=== PATIENT | female | born 1970 | race Caucasian/White ===

== ENCOUNTER 2025-03-01 13:20 | Emergency (ER) | payer OTHER, SELFPAY ==
--- NOTE | 2025-03-01 | ECG_ITS ---
Test Reason : DIZZINESS Blood Pressure : */* mmHG Vent. Rate : 77 BPM Atrial Rate : 77 BPM P-R Int : 146 ms QRS Dur : 80 ms QT Int : 354 ms P-R-T Axes : 45 32 39 degrees QTcB Int : 400 ms Normal sinus rhythm Low voltage QRS Borderline ECG No previous ECGs available Referred By: Nehemiah Lopez Electronically Signed By: BHAVNA BOOGIE
--- NOTE | ~2025-03-01 | CT_ITS ---
EXAMINATION: CT ANGIOGRAM BRAIN, HEAD CLINICAL INFORMATION: Headache and syncope, consider SAH COMPARISON: None available. TECHNIQUE: Test bolus sequences followed by intravenous administration 100 mL of Omnipaque 350 intravenous contrast. Helical imaging was performed in the axial plane from the skull base to the vertex. Delayed postcontrast imaging of the head was also performed. The data was processed at the glass technologist workstation for generation of MIP sequences. Three-dimensional volume rendered reformatted images were also generated at an offline 3-D workstation. The degree of stenosis determined by NASCET criteria. This CT examination was performed using dose optimization techniques as appropriate, variously including the following: *Automated exposure control *Adjustment of mA and/or kV according to patient size (this includes techniques or standardized protocols for targeted exams where dose is matched to indication/reason for exam; i.e. extremities or head) *Use of iterative reconstruction technique FINDINGS: CTA OF THE BRAIN: -INTRACRANIAL INTERNAL CAROTID ARTERIES: No focal stenosis or occlusion. -RIGHT ANTERIOR CEREBRAL ARTERY: Normal A1 segment.. Normal arborization of the distal segments. -LEFT ANTERIOR CEREBRAL ARTERY: Normal A1 segment.. Normal arborization of the distal segments. -ANTERIOR COMMUNICATING ARTERY: Normal. -RIGHT MIDDLE CEREBRAL ARTERY: Normal M1 segment of the MCA without focal stenosis or occlusion. Normal bifurcation. Normal arborization of the distal segments. -LEFT MIDDLE CEREBRAL ARTERY: Normal M1 segment of the MCA without focal stenosis or occlusion. Normal bifurcation. Normal arborization of the distal segments. -RIGHT VERTEBRAL ARTERY V4: Normal in course and caliber. -LEFT VERTEBRAL ARTERY V4: Dominant. Normal in course and caliber. -BASILAR ARTERY: Normal without focal stenosis or occlusion. Normal appearance of the proximal superior cerebellar arteries. Normal basilar tip. -RIGHT POSTERIOR CEREBRAL ARTERY: Normal P1 segment. Normal opacification of the distal ALLIED HEALTH PROFESSIONAL segments. -LEFT POSTERIOR CEREBRAL ARTERY: Normal P1 segment. Normal opacification of the distal ALLIED HEALTH PROFESSIONAL segments. -POSTERIOR COMMUNICATING ARTERIES: The left is diminutive. The right is well seen. There is no regional oligemia on the MIPPED images. Normal opacification of the superior sagittal, straight, transverse, and sigmoid sinuses. No venous thrombosis. No space-occupying hemorrhage or definite evolving infarct. CT/CT angio head IMPRESSION: CTA HEAD: 1. Normal exam. No major arterial vascular occlusion, significant stenosis, dissection, or aneurysm. 2. Major cortical and dural venous sinuses are patent. 3. No evolving ischemic infarction or space-occupying hemorrhage. Electronically signed by: Karthik Clay MD 03/01/2025 03:36 PM EDT RP
--- NOTE | ~2025-03-01 | CT_ITS ---
EXAMINATION: CT CERVICAL SPINE WITHOUT IV CONTRAST HISTORY: syncope. TECHNIQUE: Helical CT of the cervical spine was performed per standard departmental protocol. Coronal and sagittal reformatted images were also evaluated. One or more of the following techniques was used for dose reduction: Automated exposure control, adjustment of the mA and/or kV according to patient size, use of iterative reconstruction technique. DLP: 298 mGy-cm COMPARISON: There are no prior studies for comparison. FINDINGS: CERVICAL SPINE: Osseous mineralization is normal. There is straightening of the normal cervical lordosis. The vertebral bodies maintain normal height, without evidence of fracture or subluxation. There is mild degenerative disc disease at the C6-7 level, with disc space narrowing and osteophyte formation. Evaluation for disc pathology is limited by lack of intrathecal contrast material, however. BRAIN: The visualized portion of the brain is unremarkable. SINUSES: The visualized paranasal sinuses, mastoid air cells and middle ear cavities are unremarkable. LUNG APICES: The visualized lung apices are clear. SOFT TISSUES: There is a 1.6 cm right thyroid nodule. CT/CT cervical spine wo IV con IMPRESSION: 1. Straightening of the normal cervical lordosis. No evidence of fracture or subluxation of the cervical spine. 2. 1.6 cm right thyroid nodule. Nonemergent thyroid ultrasound is recommended. Electronically signed by: Issa Ramos MD 03/01/2025 03:34 PM EDT
--- NOTE | ~2025-03-01 | CT_ITS ---
EXAMINATION: CT HEAD WITHOUT CONTRAST CLINICAL INFORMATION: Syncope. COMPARISON: None available. TECHNIQUE: Contiguous axial imaging was performed from the skull base to vertex without intravenous administration of contrast. This CT examination was performed using dose optimization techniques as appropriate, variously including the following: *Automated exposure control *Adjustment of mA and/or kV according to patient size (this includes techniques or standardized protocols for targeted exams where dose is matched to indication/reason for exam; i.e. extremities or head) *Use of iterative reconstruction technique FINDINGS: There is no evidence of intracranial hemorrhage or extra-axial fluid collection. There is no mass effect, or edema. No CT evidence of acute territorial infarct. Ventricles, sulci, and cisterns are normal in size and configuration for patient age. No hydrocephalus. No midline shift. Negative hyperdense MCA sign. Negative insular ribbon sign. No significant white matter abnormalities. Normal pituitary. Globes and orbital contents image normally. No extracranial soft tissue abnormalities. The paranasal sinuses, mastoid air cells, and tympanic cavities are normally aerated. No suspicious bony abnormalities. There are no acute fractures evident. CT/CT head/brain wo IV con IMPRESSION: No acute intracranial abnormality. Electronically signed by: Karthik Clay MD 03/01/2025 03:30 PM EDT RP
[2025-03-01 13:36] VITALS: BP 120/87; PULSE 77; RESP 18; TEMP 36.6; O2SAT 100; BMI 34.5
--- NOTE | 2025-03-01 13:42 | ED_ITS ---
HPI - General Adult General Chief complaint: Dizziness Stated complaint: Passed out earlier Time Seen by Provider: 03/01/25 13:45 History of Present Illness ED Provider: Nehemiah Lopez MD HPI narrative: Presents for evaluation after a syncopal event at work. Patient is a 54-year-old female who is on an antihypertensive who self reports but has not formally diagnosed with ?optical or ocular migraine?. She gets reasonably frequent visual flashes associated with headache. She does not have a formal migraine diagnosis nor has she had any neuroimaging or follows a neurologist. She does see an eye doctor she reports no major ophthalmologic abnormality. She tells me that last night she started with these binocular flashers in all visual nava mild but associated with mild headache this with self-limited last few hours and resolved on its own she was able to go to sleep. She woke and went to work. This morning before work she took Tylenol but no other medications. Work she felt about abrupt onset of nausea vomiting did not have headache she felt unwell and presyncopal and passed out she was on the ground for on. Unknown period of time. No obvious tongue biting but she felt a bruise to the inside of the buccal mucosa. No incontinence. She vomited after arrives here initially in triage had mild headache nurse reported that she appeared somewhat unsteady on her feet but now she feels completely comfortable Related Data Allergies Allergy/AdvReac Type Severity Reaction Status Date / Time No Known Allergies Allergy Verified 03/01/25 13:40 [No Known Allergies*] PMFSH Social History Social History Smoked in Last 30 Days: No Use of substances other than those prescribed or required for medical reasons: No Advance Directives: Yes Advance Directives Information Provided: Yes Advance Directives on File: No Do you have a plan to hurt others: No Plan Patient : No Physical Exam ED Vital Signs: Vital Signs - 24 hr 03/01/25 13:36 03/01/25 13:56 03/01/25 14:16 Temperature 97.8 F 98.3 F Pulse Rate 77 85 76 Respiratory Rate 18 18 14 Blood Pressure 120/87 182/99 H 144/70 H Pulse Oximetry 100 100 100 Oxygen Delivery Method Room Air Room Air Room Air 03/01/25 16:08 Temperature 98.3 F Pulse Rate 76 Respiratory Rate 14 Blood Pressure 144/70 H Pulse Oximetry 100 Oxygen Delivery Method Room Air BMI result Body Mass Index 34.5 Const Other: EXAM: Gen: Alert, awake, well appearing, well hydrated. Head: Atraumatic Eyes: Anicteric, Normal conjunctiva. ENT: Moist mucosa, no pallor. ? Neck: Supple. Respiratory: Breathing comfortably, No distress.Clear to auscultation bilaterally, symmetric chest expansion, No wheeze, rales, ronchi. Cardiovascular: Regular rate and rhythm. No murmurs or rub. Well perfused periphery, warm extremities. No edema. ? Abdominal: Soft, no objective distension. No palpable masses or obvious organomegaly. No focal tenderness, no guarding, no rebound tenderness or other peritoneal findings. : No flank tenderness. Neuro: Alert. Gross movement of all extremities intact. ?5/5 strength all extremities proximal and distal. Face symmetric. Was 3-4 mm symmetric reactive no nystagmus. EOMI. Normal sensation throughout to light touch. Normal cerebellar testing. Vital signs: See flowsheet Course Course Course Narrative: RmE: 54-year-old female presents to ED for syncopal episode while at work. Patient denies any chest pain, shortness of breath or abdominal pain before passing out. Patient states yesterday she had headache migraine, but none today. Patient's main complaint right now is nausea slight dizziness. NIH score is 0. Labs EKG head CT scan ordered. Patient to being brought back to the ED. Medications Administered Discontinued Medications Generic Name Dose Route Start Last Admin Trade Name Freq PRN Reason Stop Dose Admin Sodium Chloride 1,000 mls @ 999 mls/hr 03/01/25 14:15 03/01/25 16:08 Ns IV 03/01/25 15:15 Infused .Q1H1M ALYSON Infusion Iohexol 75 ml 03/01/25 15:17 03/01/25 15:17 Iohexol 350 Mg/Ml 100 Ml Infus..Btl IV 03/01/25 15:18 75 ml ONCE ONE Administration Medical Decision Making Medical Decision Making MDM Narrative: 54-year-old female with a syncopal event as described above prior to arrival. At this time she has returned to baseline with normal steady gait no headache visual symptom there was some prodrome as described above. Initial differential was broad included cerebral aneurysm with rupture, subarachnoid hemorrhage, ocular migraine, vasovagal syncope, orthostasis, dehydration, dysrhythmia The patient's examination was reassuring. ECG lab work all reassuring here. CT as well as CTA of the head no acute intracranial mass, bleed or other acute pathology nor any vascular lesions Likely benign syncope at this time can not rule out dysrhythmia. Cardiology or PCP follow up for event monitor Lab Data MDM Lab Attestation statement: I reviewed the patient's lab results. 03/01/25 13:50 03/01/25 13:50 Labs: Lab Results 03/01/25 03/01/25 Range/Units 13:50 15:50 WBC 18.6 H (4.8-10.8) X10*3/uL RBC 4.88 (4.20-5.50) X10*6/uL Hgb 15.1 (12.0-16.0) g/dl Hct 45.1 (37.0-47.0) % MCV 92.4 (80.0-98.0) fL MCH 30.9 (27.0-33.0) pg MCHC 33.5 (31.0-35.0) g/dl RDW 12.6 (11.0-16.0) % Plt Count 338 (160-400) X10*3/uL MPV 10.6 (9.4-12.3) fL Immature Gran % (Auto) 0.5 H (0.0-0.4) % Neut % (Auto) 89.5 H (45-73) % Lymph % (Auto) 7.2 L (20-40) % Marin % (Auto) 2.5 (2-11) % Eos % (Auto) 0.0 (0-4) % Baso % (Auto) 0.3 (0-2) % Lymph # (Auto) 1.3 (1.2-4.9) X10*3/uL Marin # (Auto) 0.5 (0.1-1.2) X10*3/uL Eos # (Auto) 0.0 (0.0-0.4) X10*3/uL Baso # (Auto) 0.1 (0.0-0.2) X10*3/uL Abs Immat Gran (auto) 0.09 H (0.00-0.03) X10*3/uL Absolute Neuts (auto) 16.6 H (2.0-8.3) x10*3/uL Absolute Nucleated RBC 0.000 (0.0-0.012) X10*3/uL Nucleated RBC % (auto) 0.0 (0.0-0.2) /100WBC PT 11.6 (10.9-12.4) SEC INR 1.0 (0.9-1.1) APTT 27.2 (26.0-36.8) SEC Sodium 139 (135-145) mmol/L Potassium 4.4 (3.3-5.1) mmol/L Chloride 105 (96-108) mmol/L Carbon Dioxide 25 (22-29) mmol/L Anion Gap 13 (12-20) BUN 12 (9-16) mg/dL Creatinine 0.77 (0.5-1.4) mg/dL Estim Creat Clear Calc 88.1 Estimated GFR > 60 Random Glucose 122 H (60-115) mg/dL Calcium 9.3 (8.4-10.2) mg/dL Total Bilirubin 0.5 (0.0-1.0) mg/dL AST 30 (5-31) U/L ALT 19 (0-31) U/L Alkaline Phosphatase 68 (39-117) U/L Troponin I High Sens 3.8 (<3.5-17.0) ng/L Total Protein 7.9 (6.5-8.0) g/dL Albumin 4.5 (3.5-5.0) g/dL Beta HCG, Quant < 2 mIU/mL Urine Color Yellow Urine Appearance Clear Urine pH 6.5 (5.0-9.0) Ur Specific [place] 1.025 (1.005-1.025) Urine Protein Negative (Neg-Trace) mg/dL Urine Glucose (UA) Negative (Negative) mg/dL Urine Ketones Negative (Negative) mg/dL Urine Blood Negative (Negative) Urine Nitrite Negative (Negative) Ur Leukocyte Esterase Negative (Negative) Independent Interpretation I performed an independent interpretation of an: EKG (sinus 77 rate, no ischemia, normal axis.) Discharge Plan Discharge Clinical Impression: Syncope Patient Disposition: Home, Self-Care Instructions: Syncope (ED) Additional Instructions: _ DISCHARGE DIAGNOSES: Passing out episode versus less likely seizure HISTORY OF PRESENTATION: ?Visual flashers followed by passing out episode earlier at work. EMERGENCY DEPARTMENT COURSE,TESTS, TREATMENTS: While in the ED today fully evaluated you and examined you. You had broad blood laboratory work which was reassuring. You had a CT of her head including angiography of the vessels and a CT of your neck. No injuries, stroke vascular or other abnormalities were identified. Your lab work was reassuring you had a normal and reassuring EKG DISCHARGE MEDICATIONS: ?[We have made no changes to your regular medication regimen] FOLLOW-UP: ?Call your primary or general physician soon as possible to discuss your symptoms, your ED visit and to discuss follow up plans Call your primary doctor for follow up you may need outpatient workup for migraine, ophthalmologic or neurologic issues or possible cardiac issues causing syncope or passing out INSTRUCTIONS ?& RETURN PRECAUTIONS: If any symptoms change first call your primary physician, if it is after-hours your primary doctors office should have a provider duplication specialist you can speak with. If the symptoms are severe or very concerning to you then call 911 or return to the ED. Nehemiah Lopez MD Emergency Physician [facility] Interventions: ED Discharge Assessment Last Done: 03/01/25 16:08 Discharge Date/Time: 03/01/25 16:19 Print Language: Montserratian
[2025-03-01 13:54] LABS: MANUAL DIFF FLAG NO
[2025-03-01 13:56] VITALS: BP 182/99; PULSE 85; RESP 18; O2SAT 100
[2025-03-01 13:58] LABS: Basophils Absolute Auto 0.1 X10*3/uL (0.0-0.2); Basophils Percent Auto 0.3 % (0-2); Hematocrit 45.1 % (37.0-47.0); Hemoglobin 15.1 g/dl (12.0-16.0); Imm Gran Abs Auto 0.09 X10*3/uL (0.00-0.03); Imm Gran Pct Auto 0.5 % (0.0-0.4); Lymphocytes Absolute Auto 1.3 X10*3/uL (1.2-4.9); Lymphocytes Percent Auto 7.2 % (20-40); Mean Corpuscular HGB Conc 33.5 g/dl (31.0-35.0); Mean Corpuscular Hemoglobin 30.9 pg (27.0-33.0); Mean Corpuscular Volume 92.4 fL (80.0-98.0); Mean Platelet Volume 10.6 fL (9.4-12.3); Monocytes Absolute Auto 0.5 X10*3/uL (0.1-1.2); Monocytes Percent Auto 2.5 % (2-11); Neutrophils Absolute Auto 16.6 x10*3/uL (2.0-8.3); Neutrophils Percent Auto 89.5 % (45-73); Platelet Count 338 X10*3/uL (160-400); Red Blood Count 4.88 X10*6/uL (4.20-5.50); Red Cell Distribution Width 12.6 % (11.0-16.0); White Blood Count 18.6 X10*3/uL (4.8-10.8)
[2025-03-01 14:01] LABS: Prothrombin Time 11.6 SEC (10.9-12.4)
[2025-03-01 14:04] LABS: Partial Thromboplastin Time 27.2 SEC (26.0-36.8)
[2025-03-01] MEDS: 0.9 % Sodium Chloride 1,000 ML 999 ML IV (14:13)
[2025-03-01 14:16] VITALS: BP 144/70; PULSE 76; RESP 14; TEMP 36.8; O2SAT 100
[2025-03-01 14:26] LABS: Alanine Aminotransferase 19 U/L (0-31); Albumin Level 4.5 g/dL (3.5-5.0); Anion Gap 13 (12-20); Aspartate Amino Transferase 30 U/L (5-31); Bilirubin Total 0.5 mg/dL (0.0-1.0); Blood Urea Nitrogen 12 mg/dL (9-16); Calcium 9.3 mg/dL (8.4-10.2); Carbon Dioxide 25 mmol/L (22-29); Chloride 105 mmol/L (96-108); Creatinine Clr Calc Pharmacy 88.1; Estimated Glomerular Filt Rate > 60; Glucose Random 122 mg/dL (60-115); Potassium 4.4 mmol/L (3.3-5.1); Sodium 139 mmol/L (135-145); Total Protein 7.9 g/dL (6.5-8.0)
[2025-03-01 14:28] LABS: Troponin-I High Sensitivity 3.8 ng/L (<3.5-17.0)
[2025-03-01 14:36] LABS: HCG Quantitative < 2 mIU/mL
[2025-03-01] MEDS: iohexoL 350 MG/ML 100 ML INFUS..BTL 75 ML IV (15:17)
--- OUTSIDE RECORDS SUMMARY | 2025-03-01 15:20 | XMS_ITS | Encounter Summary ---
Author Organization [facility] Address [address] [place] [address] Care Team Providers Care Instrument Person Name Role Phone Estefania Mills Jacinta RETAIL FINANCIAL ANALYST Primary Care Provider + [phone] Encounter Details Date Type Department Care Team (Latest Contact Info) Description 10/12/2024 Lab Requisition [facility] - Main Lab [address] [place] [id number] Bruna Bermuen MD [address] [phone] Encounter for gynecological examination (general) (routine) without abnormal findings Social History Tobacco Use Types Packs/Day Years Used Date Smoking Tobacco: Never Assessed Comments Unknown Sex and Gender Information Value Date Recorded Sex Assigned at Female 10/14/2024 2:23 PM EST Legal Sex Female 11:29 AM EST Gender Identity Female 10/14/2024 2:23 PM EST Sexual Orientation Straight 10/14/2024 2: 23 PM EST documented as of this encounter Plan of Treatment Not on file documented as of this encounter Procedures Procedure Name Priority Date/Time Associated Diagnosis Comments PAP SMEAR Routine 10/12/2024 12:00 AM EST Encounter for gynecological examination (general) (routine) without abnormal findings documented in this encounter Results * Pap smear (10/12/2024 12:00 AM EST) Interpretation Negative for intraepithelial lesion or malignancy 10/18/2024 2:48 PM EST [facility] General Categorization Negative 10/18/2024 2:48 PM [facility] Specimen Adequacy Satisfactory for evaluation, endocervical/naylor sformation zone component present 10/18/2024 2:48 PM [facility] Pap Methodology Liquid Based Pap Test 10/18/2024 2:48 PM [facility] Disclaimer The Pap test is a screening test which carries an inherent false negative rate. These test results should be correlated with the patient's clinical findings and history. This Pap test was processed using an automated screening system. Technical cytopathology services provided by [facility], at [address] [place] [id number] (CLIA # [id number]/Roscoe Diana MD, Furnace Room Supervisor.) 10/18/2024 2:48 PM [facility] Console Pap Interpretation Reported 10/18/2024 2:48 PM [facility] Brushing/Spatula Cervix uteri structure / Unknown 10/12/2024 10/12/2024 3:11 PM EST us Bruna Berumen MD LAB CYTOLOGY ORDERABLES Final Result Performing Organization Address City/State/[facility] Co de Phone Number [facility] [address] [place] [address], documented in this encounter Visit Diagnoses Diagnosis Encounter for gynecological examination (general) (routine) without abnormal findings documented in this encounter Care Teams Instrument Person Relationship Specialty Start Date End Date Estefania Mills NP [address] [facility] [place] [address] PCP - General Nurse Practitioner 10/14/24 documented as of this encounter
--- OUTSIDE RECORDS SUMMARY | 2025-03-01 15:20 | XMS_ITS | Clinical Summary ---
Author Organization [address] Address [address] [place] [phone] Phone Care Team Providers Care Ski Production Supervisor Name Role Phone Estefania Mills NP Primary Care Provider [phone] Encounters Date Type Department Care Team Description 01/19/2025 7:45 AM EDT - 01/19/2025 11:59 PM EDT [facility] [address] [phone] Encounter for screening mammogram for malignant neoplasm of breast Discharge Disposition: Home or Self Care from Last 3 Months Surgical History Surgery Date Site/Laterality Comments BREAST CYST ASPIRATION Left Family History Medical History Relation Name Comments Breast cancer Mother Relation Name Status Comments Mother Social History Tobacco Use Types Packs/Day Years Used Date Smoking Tobacco: Never Assessed Comments No Sex and Gender Information Value Date Recorded Sex Assigned at Female 10/14/2024 2:23 PM EST Legal Sex Female 11:29 AM EST Gender Identity Female 10/14/2024 2:23 PM EST Sexual Orientation Straight 10/14/2024 2: 23 PM EST Obstetrics History Para Term AB IAB SAB Ectopic Multiple Livin g Live Births 1 Last Filed Vital Signs Vital Sign Reading Time Taken Comments Blood Pressure - - Pulse - - Temperature - - Respiratory Rate - - Oxygen Saturation - - Inhaled Oxygen Concentration - - Weight 88.5 kg (195 lb) 01/19/2025 7:59 AM EDT Height 157.5 cm (5' 2 ) 01/19/2025 7:59 AM EDT Body Mass Index 35.67 01/19/2025 7:59 AM EDT Plan of Treatment Health Maintenance Due Date Last Done Comments Hepatitis B Vaccines (1 of - + 3-dose series) 1989 Pneumococcal Vaccine: 50+ Years (1 of 1 - PCV) 2020 Cholesterol Screening (Lipid Panel) 09/24/2022 Colorectal Cancer Screening: Colonoscopy 09/24/2022 Depression Screening 09/24/2022 HIV Screening 09/24/2022 Hepatitis C Screening 09/24/2022 Social Influencers of Health Screening 09/24/2022 COVID-19 Vaccine ( season) 2024 09/28/2021, 02/02/2021 Hypertension/CHF/CAD Annual BMP Blood Test 01/19/2025 Influenza Vaccine (Season Ended) 2025 10/26/2019, 08/02/2011 Breast Cancer Screening 01/19/2027 01/20/20, 01/19/2024, 01/13/2023, Additional history exists Cervical Cancer Screening: Pap Smear 10/12/2027 10/12/2024 DTaP,Tdap,and Td Vaccines (2 - Td or Tdap) 09/16/2032 09/16/2022 Zoster Vaccines Completed 08/10/2022, 05/17/2022 HIB Vaccines Aged Out No longer eligi ble based on patient's age to complete this topic HPV Vaccines Aged Out No longer eligi ble based on patient's age to complete this topic Hepatitis A Vaccines Aged Out No long er eligible based on patient's age to complete this topic IPV Vaccines Aged Out No longer eligi ble based on patient's age to complete this topic MMR Vaccines Aged Out No longer eligi ble based on patient's age to complete this topic Meningococcal ACWY Vaccine Aged Out N o longer eligible based on patient's age to complete this topic Meningococcal B Vaccine Aged Out No l onger eligible based on patient's age to complete this topic Pneumococcal Vaccine: Pediatrics (0 to 5 Years) and At-Risk Patients (6 to 64 Years) Aged Out No longer eligible based on patient's age to complete this topic RSV Immunization Patients Under 20 months Aged Out No longer eligible based on patient's age to complete this topic Varicella Vaccines Aged Out No longer eligible based on patient's age to complete this topic Procedures Procedure Name Priority Date/Time Associated Diagnosis Comments MG MAMMO DIGITAL SCREENING W CHANDLER BILAT Routine 01/19/2025 8:07 AM EDT Encounter for screening mammogram for malignant neoplasm of breast PAP SMEAR Routine 10/12/2024 12:00 AM EST Encounter for gynecological examination (general) (routine) without abnormal findings from Last 3 Months or Most Recently Relevant to Health Maintenance Results * MG Mammo Digital Screening w Chandler bilat (01/19/2025 8:07 AM EDT) Anatomical Region Laterality Modality Breast Bilateral Mammography 01/25/2025 8:00 AM EDT Impressions 01/25/2025 8:03 AM EDT No evidence of breast malignancy. BI-RADS CATEGORY: 2 - BENIGN RECOMMENDATION: Screening bilateral mammogram is recommended in 1 year. Mammo Location: [facility], [address] [place] [address], [id number], . -------- FINAL REPORT -------- Dictated By: Katerine Charlton Dictated Date: 01/25/2025 08:00 ET Assigned Physician: Katerine Charlton Reviewed and Electronically Signed By: Katerine Charlton Signed Date: 01/25/2025 08:03 ET Workstation ID: [id number] Transcribed By: Self Edit Transcribed Date: 01/25/2025 08:00 ET Narrative 01/25/2025 8:03 AM EDT CLINICAL: 54 years old, Female, routine annual exam. COMPARISON: 01/19/2024, 01/13/2023, 01/10/2022, 01/08/2021, 01/05/2020 and 09/04/2017 ?? TECHNIQUE: Bilateral MLO and CC views were obtained digitally with 3-D mammogram (digital breast tomosynthesis). Computer-aided detection was utilized in evaluation of this exam (CAD). FINDINGS: There is no evidence of suspicious mass or architectural distortion. ??No worrisome calcifications are evident. ??There has been no significant change from prior exam(s). ? Stable round mass in the left the breast at 6 o'clock anterior depth this was previously demonstrated to represent a simple cyst by ultrasound. BREAST DENSITY: B - There are scattered areas of fibroglandular density. Procedure Note Katerine Charlton MD - 01/25/2025 CLINICAL: 54 years old, Female, routine annual exam. COMPARISON: 01/19/2024, 01/13/2023, 01/10/2022, 01/08/2021, 01/05/2020 and09/04/2017 TECHNIQUE: Bilateral MLO and CC views were obtained digitally with 3-Dmammogram (digital breast tomosynthesis). Computer-aided detection wasutilized in evaluation of this exam (CAD). FINDINGS: There is no evidence of suspicious mass or architectural distortion. Noworrisome calcifications are evident. There has been no significantchange from prior exam(s). Stable round mass in the left the breast at6 o'clock anterior depth this was previously demonstrated to represent asimple cyst by ultrasound. BREAST DENSITY: B - There are scattered areas of fibroglandular density. IMPRESSION: No evidence of breast malignancy. BI-RADS CATEGORY: 2 - BENIGN RECOMMENDATION: Screening bilateral mammogram is recommended in 1 year. Mammo Location: [facility], [address] [place] [address], [id number], . -------- FINAL REPORT -------- Dictated By: Katerine Charlton Dictated Date: 01/25/2025 08:00 ET Assigned Physician: Katerine Charlton Reviewed and Electronically Signed By: Katerine Charlton Signed Date: 01/25/2025 08:03 ET Workstation ID: [id number] Transcribed By: Self Edit Transcribed Date: 01/25/2025 08:00 ET us Bruna Berumen MD IMG BI PROCEDURES Final Result * Pap smear (10/12/2024 12:00 AM EST) Interpretation Negative for intraepithelial lesion or malignancy 10/18/2024 2:48 PM EST [facility] General Categorization Negative 10/18/2024 2:48 PM EST [facility] Specimen Adequacy Satisfactory for evaluation, endocervical/naylor sformation zone component present 10/18/2024 2:48 PM EST [facility] Pap Methodology Liquid Based Pap Test 10/18/2024 2:48 PM EST [facility] Disclaimer The Pap test is a screening test which carries an inherent false negative rate. These test results should be correlated with the patient's clinical findings and history. This Pap test was processed using an automated screening system. Technical cytopathology services provided by [facility], at [address] [place] [address] (CLIA # [id number]/Roscoe Diana MD, Batch And Furnace Manager.) 10/18/2024 2:48 PM EST [facility] Console Pap Interpretation Reported 10/18/2024 2:48 PM EST [facility] Brushing/Spatula Cervix uteri structure / Unknown 10/12/2024 10/12/2024 3:11 PM EST us Bruna Berumen MD LAB CYTOLOGY ORDERABLES Final Result [facility]) [facility] [address] [place] [address], from Last 3 Months or Most Recently Relevant to Health Maintenance Insurance [facility] Care Teams Ski Production Supervisor Relationship Specialty Start Date End Date Estefania Mills JELLY MAKER [address] [facility] [place] [address] PCP - General Nurse Practitioner 10/14/24
[2025-03-01 15:58] LABS: Appearance Urine Clear; Color Urine Yellow; Glucose Urine UA Negative (Negative); Leukocyte Esterase Urine Negative (Negative); Nitrite Urine Negative (Negative); PH 6.5 (5.0-9.0); Specific Gravity - Urine 1.025 (1.005-1.025); Urine Blood Negative (Negative); Urine Ketones Negative (Negative); Urine Protein Negative (Neg-Trace)
[2025-03-01 16:08] VITALS: BP 144/70; PULSE 76; RESP 14; TEMP 36.8; O2SAT 100
[2025-03-01 16:59] LABS: Alkaline Phosphatase 68 U/L (39-117)
== END 2025-03-01 16:19 | disposition home or self-care (01) ==
PROVIDERS: Physician Assistant; Emergency Provider Emergency Medicine; PCP Nurse Practitioner Family
DX: R55 Syncope and collapse (principal); R42 Dizziness and giddiness; R11.2 Nausea with vomiting, unspecified; R29.700 NIHSS score 0
CPT/HCPCS: 36415; 70450; 70496; 72125; 80053; 81003; 84484; 84702; 85025; 85610; 85730; 93005; 96360; 96361; 99284; 99285; Q9967

== ENCOUNTER → 2025-03-01 13:40 | Outpatient (BNV) | payer OTHER, SELFPAY | PROVIDERS: Emergency Provider Emergency Medicine; PCP Nurse Practitioner Family; Visit Provider Radiology Diagnostic Radiology | DX: R51.9 Headache, unspecified (principal); R55 Syncope and collapse; E04.1 Nontoxic single thyroid nodule | CPT/HCPCS: 70450; 70496; 72125 ==

== ENCOUNTER → 2025-03-01 13:53 | Outpatient (BNV) | payer OTHER, SELFPAY | PROVIDERS: Emergency Provider Emergency Medicine; PCP Nurse Practitioner Family; Visit Provider Internal Medicine | DX: R42 Dizziness and giddiness (principal) | CPT/HCPCS: 93010 ==